=== PATIENT | male | born 1980 | race Hispanic/Latino ===

== ENCOUNTER 2022-06-01 09:24 | Emergency (ER) | payer OTHER, BC ==
[2022-06-01] MEDS ORDERED: Ketorolac Tromethamine 30 MG/ML VIAL ONE ×2 (10:01→10:08)
== END 2022-06-01 11:00 | disposition home or self-care (01) ==
LOC: ERS 09:24
DX: S09.90XA Unspecified injury of head, initial encounter (principal); M54.2 Cervicalgia; M25.512 Pain in left shoulder; V49.40XA Driver injured in collision with unspecified motor vehicles in traffic accident, initial encounter; Y92.410 Unspecified street and highway as the place of occurrence of the external cause
CPT/HCPCS: 70450; 72125; 96372; J1885

== ENCOUNTER 2024-06-30 07:51 | Outpatient (CLI) | payer BC ==
[2024-06-30 08:49] LABS: #Basophils 0.04 10x3/uL (0.0-0.2); %Basophils 0.5 % (0.0-1.0); %Eosinophils 1.7 % (0.0-10.0); %Lymphocytes 41.3 % (21.0-51.0); %Monocytes 6.7 % (0.0-10.0); %Neutrophils 48.6 % (42.0-75.0); Hemoglobin 16.3 g/dL (14.0-18.0); Mean Corpuscular HGB CONC 36.2 g/dL (32.0-36.0); Mean Corpuscular Hemoglobin 30.3 pg (27.0-31.0); Mean Corpuscular Volume 83.6 fL (78.0-98.0); Mean Platelet Volume 10.4 fL (7.4-10.4); Platelet Count 220 10x3/uL (130-400); RBC Distribution Width 12.3 % (11.5-14.5); Red Blood Cell (RBC) Count 5.38 mill/uL (4.70-6.10)
[2024-06-30 09:06] LABS: Anion Gap 16 mmol/L (10-20); BUN (Urea Nitrogen) 18 mg/dL (8.9-20.6); Calc. Creatinine Clearance 0 mL/min (70-130); Calcium 9.7 mg/dL (7.8-10.44); Carbon Dioxide 23 mmol/L (22-29); Chloride 102 mmol/L (98-107); Estimated GFR 65; Glucose 93 mg/dL (70-105); Potassium 4.3 mmol/L (3.5-5.1); Sodium 137 mmol/L (136-145)
[2024-06-30 09:08] LABS: Bacteria/HPF None Seen HPF (None Seen); Bilirubin Negative (Negative); Blood, Urine Negative (Negative); Clarity Clear (Clear); Glucose, Urine (Dipstick) Normal (Negative); Ketone, Urine Negative (Negative); Leukocyte Negative Leu/uL (Negative); Nitrite Negative (Negative); Protein, Urine (Dipstick) Negative (Neg-Trace); RBC/HPF 0-3 HPF (0-3); Specific Gravity, Urine 1.007 (1.002-1.036); Squamous Epithelial None Seen HPF (0-3); Urobilinogen Normal mg/dL (Less than 2); WBC/HPF 0-3 HPF (0-3); pH, Urine 6.5 (5.0-9.0)
[2024-06-30 09:10] LABS: Prothrombin Time 13.1 sec (12.0-14.7)
[2024-06-30 09:11] LABS: PTT 29.6 sec (22.9-36.1)
== END 2024-06-30 07:52 | disposition home or self-care (01) ==
LOC: LABBT 07:51
PROVIDERS: ATTEND Urology
DX: Z01.818 Encounter for other preprocedural examination (principal); N13.2 Hydronephrosis with renal and ureteral calculous obstruction
CPT/HCPCS: 80048; 81001; 85025; 85610; 85730; 87086

== ENCOUNTER 2024-07-09 07:25 | Outpatient (CLI) | payer BC | END 2024-07-09 07:26 | disposition home or self-care (01) | LOC: BICCT 07:25 | PROVIDERS: ATTEND Urology | DX: N20.2 Calculus of kidney with calculus of ureter (principal) | CPT/HCPCS: 74176 ==

== ENCOUNTER 2024-07-10 08:28 | Day surgery (SDC) | payer BC ==
[2024-06-30 08:14] VITALS: BMI 26.6
[2024-07-10] MEDS ORDERED: fentaNYL PF 100 MCG/2 ML SYRINGE ONE ×2 (08:53→12:40)
[2024-07-10] MEDS ORDERED: Lidocaine 1% PF 5 ML VIAL ONE (08:53)
[2024-07-10] MEDS ORDERED: Ondansetron PF 4 MG/2 ML Vial ONE (08:53)
[2024-07-10] MEDS ORDERED: PROPOFOL 20 ML ONE (08:54)
[2024-07-10] MEDS ORDERED: Midazolam HCl 2 mg/2 ml Vial ONE ×2 (08:54→10:40)
[2024-07-10] MEDS ORDERED: cefTRIAXone (ROCEPHIN) 1 GM VIAL ONE (09:37)
[2024-07-10] MEDS ORDERED: Sodium Chloride 0.9% 100 ML ONE (09:37)
[2024-07-10] MEDS ORDERED: PHENYLEPHRINE-NS 100 MCG/ML 10 ML SYRINGE ONE (11:28)
[2024-07-10] MEDS ORDERED: Glycopyrrolate 0.2 MG/ML 5 ML SYRINGE ONE (11:31)
[2024-07-10] MEDS ORDERED: Oxybutynin 5 MG TAB ONE (12:28)
[2024-07-10] MEDS ORDERED: Phenazopyridine HCl 100 MG TAB ONE (12:28)
[2024-07-10] MEDS ORDERED: fentaNYL 50 mcg/mL 1 mL Vial ONE (13:04)
[2024-07-10] MEDS ORDERED: HYDROcodone/Acetaminophen 5/325 mg Tablet ONE (14:07)
== END 2024-07-10 14:20 | disposition home or self-care (01) ==
LOC: SDC 08:28
PROVIDERS: ATTEND Urology
PROC: 0TC78ZZ Extirpation of Matter from Left Ureter, Via Natural or Artificial Opening Endoscopic (ICD-10-PCS; principal; 2024-07-10)
PROC: 0T778DZ Dilation of Left Ureter with Intraluminal Device, Via Natural or Artificial Opening Endoscopic (ICD-10-PCS; principal; 2024-07-10)
DX: N20.1 Calculus of ureter (principal); N13.30 Unspecified hydronephrosis; Z88.1 Allergy status to other antibiotic agents; Z79.899 Other long term (current) drug therapy
CPT/HCPCS: 82365; 88300; C1747; C1769; C2617; J0696; J2250; J2405; J2704; J3010